=== PATIENT | female | born 2000 | race Caucasian/White ===

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

== ENCOUNTER → 2021-08-14 | Outpatient (CLI) | payer OTHER ==
--- NOTE | 2021-08-14 11:47 | RAD ---
Study: XR LUMBAR SPINE 2-3V Indication: Low back pain. Comparison: None. Findings: 5 nonrib-bearing lumbar vertebral elements. Maintained vertebral body height. No listhesis. Mild disc space narrowing at L5-S1. Unremarkable posterior elements. No ankylosis seen across the SI joints. There appears to be suture chain at the right lower quadrant. Impression: 1. No acute radiographic abnormality of the lumbar spine. Alignment is within normal limits. 2. Mild disc space narrowing at L5-S1. Given patient age it is possible this is developmental in natu re as opposed to degenerative. Electronically signed by: VALENTIN RANGEL MD (08/14/2021 11:44 AM) [id number]
--- NOTE | 2021-08-14 11:48 | RAD ---
Study: XR KNEE_RT 1-2 VIEWS Indication: Right knee pain. Comparison: None. Findings: Maintained femorotibial compartment joint space height which is relatively symmetric. Alignment is an atomic. Normally located patella. No large knee joint effusion. Impression: No acute osseous abnormality or early arthrosis. Electronically signed by: VALENTIN RANGEL MD (08/14/2021 11:45 AM) [id number]
== END ==
LOC: RAD 09:03
PROVIDERS: ATTEND Family Medicine
DX: Z02.71 Encounter for disability determination (principal); M48.07 Spinal stenosis, lumbosacral region; M25.561 Pain in right knee
CPT/HCPCS: 72100; 73560